=== PATIENT | female | born 1965 | race Caucasian/White ===

== ENCOUNTER 2016-12-25 20:55 | Emergency (ER) | payer SELFPAY ==
[2016-12-25 21:55] VITALS: BP 111/72
[2016-12-25 22:01] LABS: CHLORIDE,CL 107 mmol/L (98-107); SODIUM,NA 143 mmol/L (136-145)
[2016-12-25] MEDS ORDERED: Take Home: Sulfamethoxazole/Trimethoprim 800-160 MG Tab, 2 Tab Pack PO ONE (22:09)
--- NOTE | 2016-12-29 23:26 | ER ---
Date of Service: 12/25/2016 SUBJECTIVE: Joseph presents to the emergency room with complaints of feeling lightheadedness. The patient states that she has also been experiencing fatigue. She denies any significant chest pain or shortness of breath. She does have a history of coronary artery disease and does have stents. The patient was concerned that her weakness and fatigue was caused by a heart attack, so she subsequently did take a nitroglycerin. She states that after she took the nitroglycerin, she became more lightheaded. The patient states that she feels as though her face is drooping. She states that she is not experiencing any facial numbness, and denies any numbness in her upper or lower extremities. She states that she again has not been experiencing any significant substernal chest pain but has been experiencing some intermittent left anterior respirophasic chest pain for a long period of time. PAST MEDICAL HISTORY: 1. Coronary artery disease. 2. Hyperlipidemia. 3. Hypertension. 4. COPD. 5. GERD. 6. Bladder sling procedure. REVIEW OF SYSTEMS: General: No fever or chills. Does complain of global fatigue. HEENT: No sore throat, rhinorrhea, congestion. Respiratory: No shortness of breath. Cardiac: Denies any substernal chest pain. No jaw, arm, neck, or back pain. GI: No vomiting or diarrhea. She does complain of nausea. : Denies any dysuria. Musculoskeletal: No myalgias or arthralgias. Neurologic: Denies any fainting or blackouts. She does again complain of feeling lightheaded. Denies any numbness or tingling in her extremities or face, and denies any difficulties with speech or ambulation. PHYSICAL EXAMINATION: General: A 51-year-old female, in no acute distress. Vital Signs: Blood pressure was 140/91 initially, was rechecked and found to be 111/72; heart rate 66; respiratory rate is 18; O2 saturations 96%; temp is 35.7. Skin: Warm, pink, and dry. HEENT: Head is normocephalic, atraumatic. Eyes, PERRLA. Extraocular movements are intact. No obvious facial droop noted. Ears, TMs are clear. Mouth, oral mucosa is moist. Lungs: Clear to auscultation. Heart: Regular rate and rhythm. Abdomen: Soft, nontender. There is no hepatosplenomegaly noted. There are no masses noted. Extremities: Without edema. Neurologic: Cranial nerves 2 through 12 are intact. The patient's speech is fluent. Her gait is within normal limits. Romberg is negative. She has no pronator drift. LABORATORY AND DIAGNOSTIC DATA: A 12-lead EKG was obtained showing a sinus rhythm without any acute ST or T-wave abnormalities. CBC was obtained, was all noted to be within normal limits. PT was 9.7, INR was 0.9. Comprehensive metabolic panel was obtained, was all noted to be within normal limits. Urinalysis was obtained. She did have a small leukocyte esterase and small bacteria in her urine. Urine tox screen was negative. ASSESSMENT: 1. Urinary tract infection. 2. History of lightheadedness after taking nitroglycerin. PLAN: The patient will be discharged. We will start her on Bactrim DS 1 twice daily for 10 days. Drink plenty of fluids. Return to the emergency room if she develops any abdominal pain, difficulties with worsening vertigo, chest pain, or shortness of breath. Follow up in the clinic in 10 to 14 days to ensure resolution of her urinary tract infection. All questions were answered. DONYK: 12/29/2016 17:34:51 MODL: 12/29/2016 23:20:50 /[id number]
== END 2016-12-25 22:23 | disposition home or self-care (01) ==
LOC: VM.ED 20:55
DX: R42 Dizziness and giddiness (principal); T46.3X5A Adverse effect of coronary vasodilators, initial encounter; N39.0 Urinary tract infection, site not specified; I10 Essential (primary) hypertension; I25.10 Atherosclerotic heart disease of native coronary artery without angina pectoris; E78.5 Hyperlipidemia, unspecified; J44.9 Chronic obstructive pulmonary disease, unspecified; K21.9 Gastro-esophageal reflux disease without esophagitis; Z98.890 Other specified postprocedural states
CPT/HCPCS: 36415; 71010; 80053; 80305; 81001; 84484; 85025; 85610; 93005; 99285; A9270; 99284-GF